=== PATIENT | male | born 1990 ===

== ENCOUNTER 2017-09-13 22:20 | Inpatient (IN) | payer OTHER ==
--- NOTE | 2017-09-13 23:24 | ED PDOC ---
HPI: Chest Pain Time Seen by Provider: 09/13/17 23:03 Chief Complaint (Nursing): Chest Pain Chief Complaint (Provider): Chest pain History Per: Patient History/Exam Limitations: no limitations Onset/Duration Of Symptoms: Days (today) Current Symptoms Are (Timing): Still Present Additional Complaint(s): Pt. with pain to the right side of the chest. Constant. Pain on taking a deep breath. No numbness, tingles, weakness, headaches, dizziness. No dyspnea. No back pain. Has cough. Had flu symptoms that are getting better and is no days 2 of tamiflu. Dx at an urgent care. Past Medical History Reviewed: Nursing Documentation, Vital Signs Vital Signs: Last Vital Signs Temp 102.1 F H 09/13/17 22:57 Pulse 95 H 09/13/17 22:57 Resp 16 09/13/17 22:57 BP 111/73 09/13/17 22:57 Pulse Ox 97 09/13/17 23:28 - Medical History PMH: No Chronic Diseases - Surgical History Surgical History: No Surg Hx - Family History Family History: States: Unknown Family Hx - Living Arrangements Living Arrangements: With Family - Social History Current smoker - smoking cessation education provided: No Alcohol: None Drugs: Denies - Allergies Allergies/Adverse Reactions: Allergies Allergy/AdvReac Type Severity Reaction Status Date / Time No Known Allergies Allergy Verified 09/13/17 23:02 Review of Systems ROS Statement: Except As Marked, All Systems Reviewed And Found Negative Cardiovascular: Positive for: Chest Pain Physical Exam - Reviewed Nursing Documentation Reviewed: Yes Vital Signs Reviewed: Yes - Physical Exam Appears: Positive for: Non-toxic, No Acute Distress Head Exam: Positive for: ATRAUMATIC, NORMAL INSPECTION, NORMOCEPHALIC Skin: Positive for: Normal Color, Warm, DRY Eye Exam: Positive for: EOMI, Normal appearance, PERRL ENT: Positive for: Normal ENT Inspection Neck: Positive for: Normal, Painless ROM Cardiovascular/Chest: Positive for: Regular Rate, Rhythm. Negative for: Chest Non Tender, Edema Respiratory: Positive for: Decreased Breath Sounds (b/l poor effort due to pleuritic pain). Negative for: Wheezing, Respiratory Distress Gastrointestinal/Abdominal: Positive for: Normal Exam, Bowel Sounds, Soft. Negative for: Tenderness Back: Positive for: Normal Inspection. Negative for: L CVA Tenderness, R CVA Tenderness Extremity: Positive for: Normal ROM. Negative for: Tenderness, Pedal Edema Neurologic/Psych: Positive for: Alert, Oriented - ECG ECG: Positive for: Interpreted By Me, Viewed By Me ECG Rhythm: Positive for: Normal QRS, Normal ST Segment, Sinus Rhythm O2 Sat by Pulse Oximetry: 97 Pulse Ox Interpretation: Normal - Progress ED Course And Treament: 1143: Stable. AAOx3. Will get ct. Dr. Fajardo to fu on labs and imaging. Dispo accordingly. Disposition - Clinical Impression Clinical Impression: Pneumonia - Patient ED Disposition Is Patient to be Admitted: Transfer of Care - Disposition Disposition: Transfer of Care Disposition Time: 23:50 Condition: STABLE Patient Signed Over To: Abdelrahman Fajardo
[2017-09-13] MEDS ORDERED: cefTRIAXone (Rocephin) 1 gm Inj IV ONE (23:44)
[2017-09-13] MEDS ORDERED: Azithromycin 500 MG in Sodium Chloride 0.9% 250 ML IVPB STA (23:53)
[2017-09-13 23:54] LABS: BASO % 0.2 % (0.0-2.0); HEMOGLOBIN 14.8 g/dL (12.0-18.0); LYMPH # 0.9 K/uL (1.0-4.3); LYMPH % 5.2 % (20.0-40.0); MEAN CELL VOLUME 92.2 fl (80.0-94.0); MEAN CORPUSCULAR HEMOGLOBIN 31.3 pg (27.0-31.0); MEAN PLATELET VOLUME 8.4 fl (7.2-11.7); MONO # 0.4 K/uL (0.0-0.8); MONO % 2.4 % (0.0-10.0); NEUT # 15.1 K/uL (1.8-7.0); NEUT % 92.2 % (50.0-75.0); NRBC % 0.1 % (0.0-0.0); PLATELET COUNT 261 K/uL (130-400); RBC 4.73 Mil/uL (4.40-5.90); RED CELL DISTRIBUTION WIDTH 12.5 % (11.5-14.5); WHITE BLOOD COUNT 16.4 K/uL (4.8-10.8)
[2017-09-14 00:01] LABS: VENOUS BLOOD GAS BASE EXCESS 3.1 mmol/L (0.0-2.0); VENOUS BLOOD GAS PCO2 51 mmHg (40-60); VENOUS BLOOD GAS PO2 20 mm/Hg (30-55); VENOUS BLOOD PH 7.37 (7.32-7.43)
[2017-09-14] MEDS ORDERED: cefTRIAXone (Rocephin) 1 gm Inj ONE (00:03)
[2017-09-14 00:08] LABS: ALBUMIN 4.2 g/dL (3.5-5.0); ALT/SGPT 31 U/L (21-72); AST/SGOT 32 U/L (17-59); BLOOD UREA NITROGEN 14 mg/dl (9-20); CALCIUM 9.5 mg/dL (8.4-10.2); GFR AFRICAN-AMERICAN > 60; GFR NON-AFRICAN AMERICAN > 60; LIPASE 40 U/L (23-300)
[2017-09-14 00:17] LABS: PROTHROMBIN TIME 12.6 Seconds (9.8-13.1)
[2017-09-14 00:18] LABS: INR 1.1 (0.9-1.2); PARTIAL THROMBOPLASTIN TIME 39.1 Seconds (25.6-37.1)
[2017-09-14] MEDS ORDERED: Iodixanol 320 MG/ML 100 ML BOTTLE IV ONE (00:19)
[2017-09-14] MEDS ORDERED: Sodium Chloride 0.9% 100 ML ONE (00:19)
--- NOTE | 2017-09-14 01:43 | CT ---
EXAM: CT Angiography Chest With Intravenous Contrast EXAM DATE/TIME: 09/13/2017 11:42 PM CLINICAL HISTORY: 26 years old, male; Pain; Chest pain; Additional info: Chest pain r TECHNIQUE: Axial computed tomographic angiography images of the chest with intravenous contrast using pulmonary embolism protocol. All CT scans at this facility use one or more dose reduction techniques, viz.: automated exposure control; ma/kV adjustment per patient size (including targeted exams where dose is matched to indication; i.e. head); or iterative reconstruction technique. MIP reconstructed images were created and reviewed. Coronal and sagittal reformatted images were created and reviewed. CONTRAST: 95 mL of visipaque administered intravenously. COMPARISON: There are no prior studies for comparison. FINDINGS: Artifacts: Motion artifact degrades image quality. Heart, aorta and Pulmonary arteries: Heart size is normal.There is fluid in pericardial recesses.There is no aneurysm or dissection.There are no pulmonary emboli. Lungs and pleural spaces: Trachea and main bronchi are patent. There is partial consolidation of the right middle lobe with air bronchograms. There is partial consolidation of the right lower lobe. There is minimal dependent airspace disease at the left base. There no effusions Mediastinum: The esophagus is unremarkable. There is residual thymic tissue in the anterior mediastinum. There are mildly prominent mediastinal nodes. There is right hilar adenopathy. Thyroid: Thyroid is only partially imaged. Bones/joints: There are old healed right rib fractures. Soft tissues: unremarkable Upper abdomen: There are no acute abnormalities in the visualized portion of the abdomen. IMPRESSION: Right middle and lower lobe pneumonia; no aneurysm, dissection or pulmonary embolus; shotty adenopathy
[2017-09-14] MEDS ORDERED: Morphine 4 MG/ML VIAL IVP PRN (01:49)
[2017-09-14 02:08] LABS: BANDS 4 % (0-2); LYMPHOCYTE 8 % (20-50); MONOCYTE 3 % (0-10); NEUTROPHIL 85 % (42-75); PLATELET ESTIMATE NORMAL (NORMAL); TOTAL CELLS COUNTED 100
[2017-09-14 05:37] LABS: BARBITURATES, UR NEGATIVE (NEGATIVE); BENZODIAZEPINES, UR NEGATIVE (NEGATIVE)
[2017-09-14 05:38] LABS: OPIATES, UR NEGATIVE (NEGATIVE); PHENCYCLIDINE, UR NEGATIVE (NEGATIVE)
[2017-09-14 06:53] LABS: HEMOGLOBIN 12.9 g/dL (12.0-18.0); MEAN CELL VOLUME 92.3 fl (80.0-94.0); MEAN CORPUSCULAR HEMOGLOBIN 31.4 pg (27.0-31.0); MEAN CORPUSCULAR HGB CONC 34.1 g/dL (33.0-37.0); RBC 4.1 Mil/uL (4.40-5.90); RED CELL DISTRIBUTION WIDTH 12.4 % (11.5-14.5)
[2017-09-14 07:24] LABS: ALBUMIN 3.5 g/dL (3.5-5.0); ALT/SGPT 31 U/L (21-72); AST/SGOT 33 U/L (17-59); BLOOD UREA NITROGEN 12 mg/dl (9-20); CALCIUM 8.7 mg/dL (8.4-10.2); GFR AFRICAN-AMERICAN > 60; GFR NON-AFRICAN AMERICAN > 60
--- NOTE | 2017-09-14 09:05 | RAD ---
HISTORY: dyspnea COMPARISON: Subsequent chest CT 09/14/2017. No prior chest imaging available comparison. FINDINGS: LUNGS: History volume is diminished. Right medial basilar opacity suggest infiltrate or atelectasis or clearly defined as pneumonia in separate chest CT 09/14/2017. Please separate report. PLEURA: No significant pleural effusion identified, no pneumothorax apparent. CARDIOVASCULAR: Normal. OSSEOUS STRUCTURES: No significant abnormalities. VISUALIZED UPPER ABDOMEN: Normal. OTHER FINDINGS: None. IMPRESSION: Medial basilar atelectasis or infiltrate right base. Please see separate chest CT result 09/14/2017 suggesting a pneumonia right middle and lower lobes.
[2017-09-14] MEDS: Azithromycin 500 MG in Sodium Chloride 0.9% 250 ML IVPB SCH (09:10)
--- NOTE | 2017-09-14 13:33 | CP.PCM.HP ---
History of Present Illness - History of Present Illness History of Present Illness: 26 year old male with no pmhx who presents to the ED with right sided chest pain when he breathes. The pain is constant, he did not take anything for it, the pain does not radiate. He recently had flu like symptoms, was seen in an urgent care and is now on day 2 of tamiflu. Denies headache, dizziness, sob, nausea, vomiting, fever, chills. Patient was noted to have pneumonia and was admitted to [facility] for further treatment. Present on Admission - Present on Admission Any Indicators Present on Admission: No Review of Systems - Review of Systems All systems: reviewed and no additional remarkable complaints except (as stated) - Constitutional Constitutional: As Per HPI - Cardiovascular Cardiovascular: Chest Pain (right sided with inhalation) - Respiratory Respiratory: As Per HPI - Gastrointestinal Gastrointestinal: As Per HPI Past Patient History - Infectious Disease Hx of Infectious Diseases: None - Past Medical History & Family History Past Medical History?: No Past Family History: Reviewed and not pertinent - Past Social History Smoking Status: Never Smoked - MUSCULOSKELETAL/RHEUMATOLOGICAL Hx Falls: No - PSYCHIATRIC Hx Psychophysiologic Disorder: No Hx Substance Use: No - SURGICAL HISTORY Hx Surgeries: No - ANESTHESIA Hx Anesthesia: No Hx Anesthesia Reactions: No Hx Malignant Hyperthermia: No Has any member of the family had a problem w/ anesthesia?: No Meds Home Medications: Home Medication List Medication Instructions Recorded Confirmed Type Clindamycin [Cleocin] 600 mg IV Q8 #10 vial 09/19/17 Rx Piperacill/Tazo 3.375gm in Dex 3.375 gm IVPB Q8 #10 bag 09/19/17 Rx [Zosyn 3.375 Gm IV] Allergies/Adverse Reactions: Allergies Allergy/AdvReac Type Severity Reaction Status Date / Time No Known Allergies Allergy Verified 09/19/17 20:48 Physical Exam - Constitutional Appears: Non-toxic, No Acute Distress - Head Exam Head Exam: ATRAUMATIC, NORMOCEPHALIC - Eye Exam Eye Exam: EOMI, Normal appearance, PERRL Pupil Exam: NORMAL ACCOMODATION - ENT Exam ENT Exam: Mucous Membranes Moist - Neck Exam Neck exam: Positive for: Full Rom, Normal Inspection - Respiratory Exam Respiratory Exam: Rhonchi (slight mid/lower lobes), NORMAL BREATHING PATTERN - Cardiovascular Exam Cardiovascular Exam: REGULAR RHYTHM, +S1, +S2 - GI/Abdominal Exam GI & Abdominal Exam: Normal Bowel Sounds, Soft - Rectal Exam Rectal Exam: Deferred - Extremities Exam Extremities exam: Positive for: full ROM, pedal pulses present - Back Exam Back exam: NORMAL INSPECTION - Neurological Exam Neurological exam: Alert, Oriented x3 - Psychiatric Exam Psychiatric exam: Normal Affect, Normal Mood - Skin Skin Exam: Normal Color, Warm Results - Vital Signs Recent Vital Signs: Last Vital Signs Temp 102.1 F H 09/14/17 12:00 Pulse 89 09/14/17 12:00 Resp 20 09/14/17 12:00 BP 115/70 09/14/17 12:00 Pulse Ox 94 L 09/14/17 12:00 - Labs Result Diagrams: 09/15/17 07:00 09/17/17 04:25 Labs: Laboratory Results - last 24 hr 09/13/17 09/13/17 09/13/17 23:45 23:45 23:45 WBC 16.4 H RBC 4.73 Hgb 14.8 Hct 43.6 MCV 92.2 MCH 31.3 H MCHC 34.0 RDW 12.5 Plt Count 261 MPV 8.4 Neut % (Auto) 92.2 H Lymph % (Auto) 5.2 L [place] % (Auto) 2.4 Eos % (Auto) 0.0 Baso % (Auto) 0.2 Neut # (Auto) 15.1 H Lymph # (Auto) 0.9 L [place] # (Auto) 0.4 Eos # (Auto) 0.0 Baso # (Auto) 0.0 Neutrophils % (Manual) 85 H Band Neutrophils % 4 H Lymphocytes % (Manual) 8 L Monocytes % (Manual) 3 Platelet Estimate Normal PT 12.6 INR 1.1 APTT 39.1 H pO2 VBG pH VBG pCO2 VBG HCO3 VBG Total CO2 VBG O2 Sat (Calc) VBG Base Excess VBG Potassium Glucose Lactate FiO2 Sodium 140 Potassium 3.6 Chloride 97 L Carbon Dioxide 27 Anion Gap 20 BUN 14 Creatinine 1.0 Est GFR ( Amer) > 60 Est GFR (Non-Af Amer) > 60 Random Glucose 139 H Calcium 9.5 Total Bilirubin 0.9 AST 32 ALT 31 Alkaline Phosphatase 89 Troponin I < 0.0120 Total Protein 8.3 H Albumin 4.2 Globulin 4.1 H Albumin/Globulin Ratio 1.0 Lipase 40 Venous Blood Potassium Urine Opiates Screen Urine Methadone Screen Ur Barbiturates Screen Ur Phencyclidine Scrn Ur Amphetamines Screen U Benzodiazepines Scrn U Oth Cocaine Metabols U Cannabinoids Screen Alcohol, Quantitative < 10 Influenza Typ A,B (EIA) 09/13/17 09/13/17 09/14/17 23:45 23:50 05:05 WBC RBC Hgb Hct MCV MCH MCHC RDW Plt Count MPV Neut % (Auto) Lymph % (Auto) [place] % (Auto) Eos % (Auto) Baso % (Auto) Neut # (Auto) Lymph # (Auto) [place] # (Auto) Eos # (Auto) Baso # (Auto) Neutrophils % (Manual) Band Neutrophils % Lymphocytes % (Manual) Monocytes % (Manual) Platelet Estimate PT INR APTT pO2 20 L VBG pH 7.37 VBG pCO2 51 VBG HCO3 25.5 VBG Total CO2 31.1 H VBG O2 Sat (Calc) 36.3 L VBG Base Excess 3.1 H VBG Potassium 4.1 Glucose 133 H Lactate 2.1 FiO2 21.0 Sodium 133.0 Potassium Chloride 101.0 Carbon Dioxide Anion Gap BUN Creatinine Est GFR ( Amer) Est GFR (Non-Af Amer) Random Glucose Calcium Total Bilirubin AST ALT Alkaline Phosphatase Troponin I Total Protein Albumin Globulin Albumin/Globulin Ratio Lipase Venous Blood Potassium 4.1 Urine Opiates Screen Negative Urine Methadone Screen Negative Ur Barbiturates Screen Negative Ur Phencyclidine Scrn Negative Ur Amphetamines Screen Negative U Benzodiazepines Scrn Negative U Oth Cocaine Metabols Negative U Cannabinoids Screen Negative Alcohol, Quantitative Influenza Typ A,B (EIA) Negative for flu a/b 09/14/17 09/14/17 06:00 06:00 WBC 14.0 H RBC 4.10 L Hgb 12.9 Hct 37.8 MCV 92.3 MCH 31.4 H MCHC 34.1 RDW 12.4 Plt Count 203 MPV Neut % (Auto) Lymph % (Auto) [place] % (Auto) Eos % (Auto) Baso % (Auto) Neut # (Auto) Lymph # (Auto) [place] # (Auto) Eos # (Auto) Baso # (Auto) Neutrophils % (Manual) Band Neutrophils % Lymphocytes % (Manual) Monocytes % (Manual) Platelet Estimate PT INR APTT pO2 VBG pH VBG pCO2 VBG HCO3 VBG Total CO2 VBG O2 Sat (Calc) VBG Base Excess VBG Potassium Glucose Lactate FiO2 Sodium 140 Potassium 3.7 Chloride 101 Carbon Dioxide 27 Anion Gap 16 BUN 12 Creatinine 1.1 Est GFR ( Amer) > 60 Est GFR (Non-Af Amer) > 60 Random Glucose 121 H Calcium 8.7 Total Bilirubin 0.6 AST 33 ALT 31 Alkaline Phosphatase 81 Troponin I Total Protein 7.0 Albumin 3.5 Globulin 3.5 Albumin/Globulin Ratio 1.0 Lipase Venous Blood Potassium Urine Opiates Screen Urine Methadone Screen Ur Barbiturates Screen Ur Phencyclidine Scrn Ur Amphetamines Screen U Benzodiazepines Scrn U Oth Cocaine Metabols U Cannabinoids Screen Alcohol, Quantitative Influenza Typ A,B (EIA) - EKG Data EKG comments: Normal sinus rhythm - Imaging and Cardiology Chest x-ray Additional comment: HISTORY: dyspnea COMPARISON: Subsequent chest CT 09/14/2017. No prior chest imaging available comparison. FINDINGS: LUNGS: History volume is diminished. Right medial basilar opacity suggest infiltrate or atelectasis or clearly defined as pneumonia in separate chest CT 09/14/2017. Please separate report. PLEURA: No significant pleural effusion identified, no pneumothorax apparent. CARDIOVASCULAR: Normal. OSSEOUS STRUCTURES: No significant abnormalities. VISUALIZED UPPER ABDOMEN: Normal. OTHER FINDINGS: None. IMPRESSION: Medial basilar atelectasis or infiltrate right base. Please see separate chest CT result 09/14/2017 suggesting a pneumonia right middle and lower lobes. CT scan - chest Additional comment: CT Scan ANGIO CHEST PE PROTOCOL Exam Date: 09/13/17 This imaging exam was performed at [facility] EXAM: CT Angiography Chest With Intravenous Contrast EXAM DATE/TIME: 09/13/2017 11:42 PM CLINICAL HISTORY: 26 years old, male; Pain; Chest pain; Additional info: Chest pain r TECHNIQUE: Axial computed tomographic angiography images of the chest with intravenous contrast using pulmonary embolism protocol. All CT scans at this facility use one or more dose reduction techniques, viz.: automated exposure control; ma/kV adjustment per patient size (including targeted exams where dose is matched to indication; i.e. head); or iterative reconstruction technique. MIP reconstructed images were created and reviewed. Coronal and sagittal reformatted images were created and reviewed. CONTRAST: 95 mL of visipaque administered intravenously. COMPARISON: There are no prior studies for comparison. FINDINGS: Artifacts: Motion artifact degrades image quality. Heart, aorta and Pulmonary arteries: Heart size is normal.There is fluid in pericardial recesses.There is no aneurysm or dissection.There are no pulmonary emboli. Lungs and pleural spaces: Trachea and main bronchi are patent. There is partial consolidation of the right middle lobe with air bronchograms. There is partial consolidation of the right lower lobe. There is minimal dependent airspace disease at the left base. There no effusions Mediastinum: The esophagus is unremarkable. There is residual thymic tissue in the anterior mediastinum. There are mildly prominent mediastinal nodes. There is right hilar adenopathy. Thyroid: Thyroid is only partially imaged. Bones/joints: There are old healed right rib fractures. Soft tissues: unremarkable Upper abdomen: There are no acute abnormalities in the visualized portion of the abdomen. IMPRESSION: Right middle and lower lobe pneumonia; no aneurysm, dissection or pulmonary embolus; shotty adenopathy Dictated By: Dulce Gannon MD, MD Dictated Date/Time: 09/14/17141 Signed By: Dulce Gannon MD Date Signed: 141 Transcribed By: JOHNATHAN Transcribe Date/Time : 09/14/17141 AMBROCIO/NAEEM [ Reading ] [ Conclusion ] Assessment & Plan (1) Pneumonia Assessment and Plan: Has fever and leukocytosis Right middle and lower lobe pneumonia on cxr and CTmonitor scan Antibiotics - Ceftriaxone, Zithromax IVF ID consult blood cultures monitor labs Status: Acute Priority: High
--- NOTE | 2017-09-14 14:48 | CARD ---
APPROVED REPORT EKG Measurement Heart [id number] <Conclusion> Normal sinus rhythm Nonspecific T wave abnormality Abnormal ECG
[2017-09-14] MEDS ORDERED: Piperacillin/Tazobact 3.375 GM in Sodium Chloride 0.9% 100 ML IVPB SCH (18:45)
--- NOTE | 2017-09-14 18:51 | CP.PCM.PN ---
Subjective - Date & Time of Evaluation Date of Evaluation: 09/14/17 Time of Evaluation: 18:41 - Subjective Subjective: I D NOTE PATIENT EXAMINED ,CHART REVIEWED CT NOTED PATIENT IS QUITE SOB s O2 BLOOD CULTURE (INITIALLY POSITIVE FOR GRAM POSITIVE COCCI IN CHAINS RESTART OXYGEN, HAVE DISCONTINUED CEFTRIAXONE START CLINDAMYCIN/ZOSYN FULL CONSULT DICTATED Objective - Vital Signs/Intake and Output Vital Signs (last 24 hours): Temp Pulse Resp BP Pulse Ox 98.4 F 74 16 110/71 98 09/14/17 17:01 09/14/17 17:01 09/14/17 17:01 09/14/17 17:01 09/14/17 17:01 Intake and Output: 09/14/17 09/14/17 06:59 18:59 Intake Total 1750 Balance 1750 - Medications Medications: Current Medications Acetaminophen (Tylenol 325mg Tab) 650 mg PO Q4 PRN PRN Reason: Fever >100.4 F Last Admin: 09/14/17 11:54 Dose: 650 mg Acetaminophen (Tylenol 325mg Tab) 325 mg PO Q4 PRN PRN Reason: Pain, Mild (1-3) Last Admin: 09/14/17 04:37 Dose: 325 mg Azithromycin 500 mg/ Sodium (Chloride) 250 mls @ 250 mls/hr IVPB DAILY NICHOLAS PRN Reason: Protocol Last Admin: 09/14/17 09:10 Dose: 250 mls/hr Clindamycin Phosphate 600 mg/ (Sodium Chloride) 54 mls @ 54 mls/hr IVPB Q8 NICHOLAS PRN Reason: Protocol Piperacillin Sod/Tazobactam (Sod 3.375 gm/ Sodium Chloride) 100 mls @ 100 mls/ hr IVPB Q8H NICHOLAS PRN Reason: Protocol Morphine Sulfate (Morphine) 2 mg IVP Q6 PRN PRN Reason: Pain, severe (8-10) - Labs Labs: 09/14/17 06:00 09/14/17 06:00 PT 12.6 Seconds (9.8-13.1) 09/13/17 23:45 INR 1.1 (0.9-1.2) 09/13/17 23:45 APTT 39.1 Seconds (25.6-37.1) H 09/13/17 23:45
[2017-09-14 20:02] LABS: ABG ALLEN TEST YES; ARTERIAL BLOOD GAS HCO3 27.2 mmol/L (21-28); ARTERIAL BLOOD GAS HEMOGLOBIN 14.1 g/dL (11.7-17.4); ARTERIAL BLOOD GAS O2 CONTENT 18.6 ML/dL (15-23); ARTERIAL BLOOD GAS O2 SAT 97.7 % (95-98); ARTERIAL BLOOD GAS PCO2 33 mm/Hg (35-45); ARTERIAL BLOOD GAS PO2 72 mm/Hg (80-100); ARTERIAL BLOOD GAS TCO2 26.7 mmol/L (22-28)
[2017-09-15] MEDS: Clindamycin 600mg/50ml NS 600 MG/50 ML BAG IVPB SCH ×3 (00:46→16:47)
[2017-09-15] MEDS: Piperacillin/Tazobact 3.375 GM in Sodium Chloride 0.9% 100 ML IVPB SCH ×3 (04:44→21:27)
[2017-09-15 08:01] LABS: HEMOGLOBIN 12.3 g/dL (12.0-18.0); MEAN CELL VOLUME 92.2 fl (80.0-94.0); MEAN CORPUSCULAR HEMOGLOBIN 31.3 pg (27.0-31.0); RBC 3.94 Mil/uL (4.40-5.90); RED CELL DISTRIBUTION WIDTH 12.6 % (11.5-14.5); WHITE BLOOD COUNT 8.3 K/uL (4.8-10.8)
[2017-09-15 08:04] LABS: ALBUMIN 3.4 g/dL (3.5-5.0); ALT/SGPT 33 U/L (21-72); AST/SGOT 21 U/L (17-59); BLOOD UREA NITROGEN 9 mg/dl (9-20); CALCIUM 9.1 mg/dL (8.4-10.2); GFR AFRICAN-AMERICAN > 60; GFR NON-AFRICAN AMERICAN > 60
[2017-09-15] MEDS: Azithromycin 500 MG in Sodium Chloride 0.9% 250 ML IVPB SCH (08:43)
[2017-09-15] MEDS ORDERED: Promethazine 12.5 mg/10 ml Syrup PO PRN (08:46)
--- NOTE | 2017-09-15 19:01 | CP.PCM.PN ---
Subjective - Date & Time of Evaluation Date of Evaluation: 09/15/17 Time of Evaluation: 19:00 - Subjective Subjective: Feels slight MARCELO, using O2 via NC. Denies headache, dizziness, CP. Had fever yesterday, none today Objective - Vital Signs/Intake and Output Vital Signs (last 24 hours): Temp Pulse Resp BP Pulse Ox 98.3 F 59 L 20 115/75 96 09/15/17 16:03 09/15/17 16:03 09/15/17 16:03 09/15/17 16:03 09/15/17 16:03 - Medications Medications: Current Medications Acetaminophen (Tylenol 325mg Tab) 650 mg PO Q4 PRN PRN Reason: Fever >100.4 F Last Admin: 09/14/17 11:54 Dose: 650 mg Acetaminophen (Tylenol 325mg Tab) 325 mg PO Q4 PRN PRN Reason: Pain, Mild (1-3) Last Admin: 09/15/17 08:47 Dose: 325 mg Azithromycin 500 mg/ Sodium (Chloride) 250 mls @ 250 mls/hr IVPB DAILY NICHOLAS PRN Reason: Protocol Last Admin: 09/15/17 08:43 Dose: 250 mls/hr Clindamycin Phosphate (Cleocin In Normal Saline) 600 mg in 50 mls @ 50 mls/hr IVPB Q8 NICHOLAS PRN Reason: Protocol Last Admin: 09/15/17 16:47 Dose: 50 mls/hr Piperacillin Sod/Tazobactam (Sod 3.375 gm/ Sodium Chloride) 100 mls @ 100 mls/ hr IVPB Q8@0500,1300,2100 NICHOLAS PRN Reason: Protocol Last Admin: 09/15/17 16:02 Dose: 100 mls/hr Morphine Sulfate (Morphine) 2 mg IVP Q6 PRN PRN Reason: Pain, severe (8-10) Promethazine HCl (Phenergan Syrup) 12.5 mg PO Q6 PRN PRN Reason: Cough - Labs Labs: 09/15/17 07:00 09/15/17 07:00 PT 12.6 Seconds (9.8-13.1) 09/13/17 23:45 INR 1.1 (0.9-1.2) 09/13/17 23:45 APTT 39.1 Seconds (25.6-37.1) H 09/13/17 23:45 - Constitutional Appears: Well, No Acute Distress - Head Exam Head Exam: ATRAUMATIC - Respiratory Exam Respiratory Exam: Rhonchi (slight right mid/lower lobes), NORMAL BREATHING PATTERN - Cardiovascular Exam Cardiovascular Exam: REGULAR RHYTHM, +S1, +S2 - GI/Abdominal Exam GI & Abdominal Exam: Soft, Normal Bowel Sounds - Neurological Exam Neurological Exam: Alert, Oriented x3 - Psychiatric Exam Psychiatric exam: Normal Affect, Normal Mood - Skin Skin Exam: Normal Color, Warm Assessment and Plan (1) Pneumonia Status: Acute - Assessment and Plan (Free Text) Assessment: Preliminary result blood cx - gram positive cocci in chains continue antibiotics O2 as needed ID consult work up for atypical pneumonia Hydrate monitor labs
[2017-09-16] MEDS: Clindamycin 600mg/50ml NS 600 MG/50 ML BAG IVPB SCH ×3 (01:11→17:14)
[2017-09-16] MEDS: Piperacillin/Tazobact 3.375 GM in Sodium Chloride 0.9% 100 ML IVPB SCH ×3 (04:34→22:38)
[2017-09-16] MEDS: Azithromycin 500 MG in Sodium Chloride 0.9% 250 ML IVPB SCH (09:26)
--- NOTE | 2017-09-16 18:06 | CP.PCM.PN ---
Subjective - Date & Time of Evaluation Date of Evaluation: 09/16/17 Time of Evaluation: 16:25 - Subjective Subjective: Feels better, less MARCELO. Denies cp, dizziness, fever or chills Objective - Vital Signs/Intake and Output Vital Signs (last 24 hours): Temp Pulse Resp BP Pulse Ox 98.5 F 56 L 20 106/70 96 09/16/17 15:45 09/16/17 15:45 09/16/17 15:45 09/16/17 15:45 09/16/17 15:45 - Medications Medications: Current Medications Acetaminophen (Tylenol 325mg Tab) 650 mg PO Q4 PRN PRN Reason: Fever >100.4 F Last Admin: 09/14/17 11:54 Dose: 650 mg Acetaminophen (Tylenol 325mg Tab) 325 mg PO Q4 PRN PRN Reason: Pain, Mild (1-3) Last Admin: 09/15/17 08:47 Dose: 325 mg Azithromycin 500 mg/ Sodium (Chloride) 250 mls @ 250 mls/hr IVPB DAILY NICHOLAS PRN Reason: Protocol Last Admin: 09/16/17 09:26 Dose: 250 mls/hr Clindamycin Phosphate (Cleocin In Normal Saline) 600 mg in 50 mls @ 50 mls/hr IVPB Q8 NICHOLAS PRN Reason: Protocol Last Admin: 09/16/17 17:14 Dose: 50 mls/hr Piperacillin Sod/Tazobactam (Sod 3.375 gm/ Sodium Chloride) 100 mls @ 100 mls/ hr IVPB Q8@0500,1300,2100 NICHOLAS PRN Reason: Protocol Last Admin: 09/16/17 11:59 Dose: 100 mls/hr Morphine Sulfate (Morphine) 2 mg IVP Q6 PRN PRN Reason: Pain, severe (8-10) Promethazine HCl (Phenergan Syrup) 12.5 mg PO Q6 PRN PRN Reason: Cough - Labs Labs: 09/15/17 07:00 09/15/17 07:00 PT 12.6 Seconds (9.8-13.1) 09/13/17 23:45 INR 1.1 (0.9-1.2) 09/13/17 23:45 APTT 39.1 Seconds (25.6-37.1) H 09/13/17 23:45 - Constitutional Appears: Well, No Acute Distress - Head Exam Head Exam: ATRAUMATIC, NORMOCEPHALIC - Respiratory Exam Respiratory Exam: Rhonchi (slight right mid/lower lobes), NORMAL BREATHING PATTERN - Cardiovascular Exam Cardiovascular Exam: REGULAR RHYTHM, +S1, +S2 - GI/Abdominal Exam GI & Abdominal Exam: Soft, Normal Bowel Sounds - Neurological Exam Neurological Exam: Alert, Oriented x3 - Psychiatric Exam Psychiatric exam: Normal Affect, Normal Mood - Skin Skin Exam: Normal Color, Warm Assessment and Plan (1) Pneumonia Status: Acute - Assessment and Plan (Free Text) Assessment: Positive bld cultures - strep. pneumoniae antibiotics adjusted by ID F/u echo hydrate oob to ambulate
--- NOTE | 2017-09-16 19:06 | CP.PCM.PN ---
Subjective - Date & Time of Evaluation Date of Evaluation: 09/16/17 Time of Evaluation: 18:50 - Subjective Subjective: I D NOTE PATIENT STATES THAT HE IS LESS SOB AND IS FEELIMG BETTER BLOOD CULTURES HAVE GROWN STREP PNEUMONIA X 2 HAVE ORDERED ECHOCARDIOGRAM COLD AGGLUTININS/LEGONELLA TITERS ARE NEGATIVE HAVE DISCONTINUED ZITHROMAX CONTINUE CLINDAMYCIN/ZOSYN LUNGS:CONTINUES TO HAVE DECREASED BS ON RIGHT C RHONCHI MID TO LOWER LUNG MALLORY Objective - Vital Signs/Intake and Output Vital Signs (last 24 hours): Temp Pulse Resp BP Pulse Ox 98.5 F 56 L 20 106/70 96 09/16/17 15:45 09/16/17 15:45 09/16/17 15:45 09/16/17 15:45 09/16/17 15:45 - Medications Medications: Current Medications Acetaminophen (Tylenol 325mg Tab) 650 mg PO Q4 PRN PRN Reason: Fever >100.4 F Last Admin: 09/14/17 11:54 Dose: 650 mg Acetaminophen (Tylenol 325mg Tab) 325 mg PO Q4 PRN PRN Reason: Pain, Mild (1-3) Last Admin: 09/15/17 08:47 Dose: 325 mg Clindamycin Phosphate (Cleocin In Normal Saline) 600 mg in 50 mls @ 50 mls/hr IVPB Q8 NICHOLAS PRN Reason: Protocol Last Admin: 09/16/17 17:14 Dose: 50 mls/hr Piperacillin Sod/Tazobactam (Sod 3.375 gm/ Sodium Chloride) 100 mls @ 100 mls/ hr IVPB Q8@0500,1300,2100 NICHOLAS PRN Reason: Protocol Last Admin: 09/16/17 11:59 Dose: 100 mls/hr Morphine Sulfate (Morphine) 2 mg IVP Q6 PRN PRN Reason: Pain, severe (8-10) Promethazine HCl (Phenergan Syrup) 12.5 mg PO Q6 PRN PRN Reason: Cough - Labs Labs: 09/15/17 07:00 09/15/17 07:00 PT 12.6 Seconds (9.8-13.1) 09/13/17 23:45 INR 1.1 (0.9-1.2) 09/13/17 23:45 APTT 39.1 Seconds (25.6-37.1) H 09/13/17 23:45
[2017-09-17] MEDS: Clindamycin 600mg/50ml NS 600 MG/50 ML BAG IVPB SCH ×3 (00:21→16:46)
[2017-09-17] MEDS: Piperacillin/Tazobact 3.375 GM in Sodium Chloride 0.9% 100 ML IVPB SCH ×3 (05:28→21:07)
[2017-09-17 06:16] LABS: ALBUMIN 3.3 g/dL (3.5-5.0); ALT/SGPT 23 U/L (21-72); AST/SGOT 18 U/L (17-59); BLOOD UREA NITROGEN 15 mg/dl (9-20); CALCIUM 9.3 mg/dL (8.4-10.2); GFR AFRICAN-AMERICAN > 60; GFR NON-AFRICAN AMERICAN > 60
--- NOTE | 2017-09-17 10:46 | RAD ---
HISTORY: f/u pna COMPARISON: 09/13/2017 TECHNIQUE: Chest PA and lateral FINDINGS: LUNGS: No definite consolidation though consolidation at the right lung base may be obscured by a the small pleural effusion on current examination. PLEURA: Small right pleural effusion, new since prior examination. CARDIOVASCULAR: Normal. OSSEOUS STRUCTURES: No significant abnormalities. VISUALIZED UPPER ABDOMEN: Normal. OTHER FINDINGS: None. IMPRESSION: New small right pleural effusion
--- NOTE | 2017-09-17 23:48 | CP.PCM.PN ---
Subjective - Date & Time of Evaluation Date of Evaluation: 09/17/17 Time of Evaluation: 19:00 - Subjective Subjective: Feels better, less MARCELO. Denies fever or chills. no chest pain Objective - Vital Signs/Intake and Output Vital Signs (last 24 hours): Temp Pulse Resp BP Pulse Ox 97.8 F 57 L 20 107/67 95 09/17/17 19:31 09/17/17 19:31 09/17/17 19:31 09/17/17 19:31 09/17/17 19:31 Intake and Output: 09/17/17 09/18/17 18:59 06:59 Intake Total 1400 Balance 1400 - Medications Medications: Current Medications Acetaminophen (Tylenol 325mg Tab) 650 mg PO Q4 PRN PRN Reason: Fever >100.4 F Last Admin: 09/14/17 11:54 Dose: 650 mg Acetaminophen (Tylenol 325mg Tab) 325 mg PO Q4 PRN PRN Reason: Pain, Mild (1-3) Last Admin: 09/15/17 08:47 Dose: 325 mg Clindamycin Phosphate (Cleocin In Normal Saline) 600 mg in 50 mls @ 50 mls/hr IVPB Q8 NICHOLAS PRN Reason: Protocol Last Admin: 09/17/17 16:46 Dose: 50 mls/hr Piperacillin Sod/Tazobactam (Sod 3.375 gm/ Sodium Chloride) 100 mls @ 100 mls/ hr IVPB Q8@0500,1300,2100 NICHOLAS PRN Reason: Protocol Last Admin: 09/17/17 21:07 Dose: 100 mls/hr Morphine Sulfate (Morphine) 2 mg IVP Q6 PRN PRN Reason: Pain, severe (8-10) Promethazine HCl (Phenergan Syrup) 12.5 mg PO Q6 PRN PRN Reason: Cough Last Admin: 09/17/17 11:50 Dose: 12.5 mg - Labs Labs: 09/15/17 07:00 09/17/17 04:25 PT 12.6 Seconds (9.8-13.1) 09/13/17 23:45 INR 1.1 (0.9-1.2) 09/13/17 23:45 APTT 39.1 Seconds (25.6-37.1) H 09/13/17 23:45 - Constitutional Appears: Well, No Acute Distress - Head Exam Head Exam: ATRAUMATIC, NORMOCEPHALIC - Respiratory Exam Respiratory Exam: Rhonchi (slight, RLL), NORMAL BREATHING PATTERN - Cardiovascular Exam Cardiovascular Exam: REGULAR RHYTHM, +S1, +S2 - GI/Abdominal Exam GI & Abdominal Exam: Soft, Normal Bowel Sounds - Neurological Exam Neurological Exam: Alert, Oriented x3 - Psychiatric Exam Psychiatric exam: Normal Affect, Normal Mood - Skin Skin Exam: Normal Color, Warm Assessment and Plan (1) Pneumonia Assessment & Plan: Continue same antibiotics Repeat bld cx negative thus far Normal echo ID consult appreciated monitor labs Status: Acute
[2017-09-18] MEDS: Clindamycin 600mg/50ml NS 600 MG/50 ML BAG IVPB SCH ×3 (00:29→16:15)
[2017-09-18] MEDS: Piperacillin/Tazobact 3.375 GM in Sodium Chloride 0.9% 100 ML IVPB SCH ×3 (05:11→20:24)
--- NOTE | 2017-09-18 09:47 | CARD ---
APPROVED REPORT EXAM: Two-dimensional and M-mode echocardiogram with Doppler and color Doppler. Other Information Quality : GoodRhythm : NSR INDICATION Infection:Subacute bacterial endocarditis +Blood Cultures 2D DIMENSIONS IVSd1.02 (0.7-1.1cm)LVDd5.27 (3.9-5.9cm) LVOT Diameter2.02 (1.8-2.4cm)PWd1.03 (0.7-1.1cm) IVSs1.28 (0.8-1.2cm)LVDs3.99 (2.5-4.0cm) FS (%) 24.2 %PWs1.28 (0.8-1.2cm) M-Mode DIMENSIONS Left Atrium (MM)4.26 (2.5-4.0cm)IVSd1.00 (0.7-1.1cm) Aortic Root3.00 (2.2-3.7cm)LVDd5.91 (4.0-5.6cm) Aortic Cusp Exc.2.24 (1.5-2.0cm)PWd0.76 (0.7-1.1cm) IVSs1.32 cmFS (%) 32 % LVDs4.00 (2.0-3.8cm)PWs1.59 cm Mitral Valve MV E Ygmtzvki82.4cm/sMV DECEL [id number] A Vpplfrzm99.6cm/s MV UXN95tsH/A ratio2.0MVA (PHT)4.07cm2 TDI Lateral E' Peak V19.31cm/sMedial E' Peak V11.33cm/sE/Lateral E'4.2 E/Medial E'7.2 Pulmonary Valve PV Peak Cmqjqxsd11.8cm/s LEFT VENTRICLE The left ventricle is normal size. There is normal left ventricular wall thickness. The left ventricular function is normal. The left ventricular ejection fraction is 60% There is normal LV segmental wall motion. The left ventricular diastolic function is normal. No left ventricle thrombus noted on this study. There is no ventricular septal defect visualized. There is no left ventricular aneurysm. There is no mass noted in the left ventricle. RIGHT VENTRICLE The right ventricle is normal size. There is normal right ventricular wall thickness. The right ventricular systolic function is normal. ATRIA The left atrium size is normal. The right atrium size is normal. The interatrial septum is intact with no evidence for an atrial septal defect. AORTIC VALVE The aortic valve is normal in structure. No aortic regurgitation is present. There is no aortic valvular stenosis. There is no aortic valvular vegetation. MITRAL VALVE The mitral valve is normal in structure. There is no evidence of mitral valve prolapse. There is no mitral valve stenosis. There is no mitral valve regurgitation noted. TRICUSPID VALVE The tricuspid valve is normal in structure. There is no tricuspid valve regurgitation noted. There is no tricuspid valve prolapse or vegetation. There is no tricuspid valve stenosis. PULMONIC VALVE The pulmonary valve is normal in structure. There is no pulmonic valvular regurgitation. There is no pulmonic valvular stenosis. GREAT VESSELS The aortic root is normal in size. The ascending aorta is normal in size. The IVC is normal in size and collapses >50% with inspiration. PERICARDIAL EFFUSION The pericardium appears normal. There is no pleural effusion. <Conclusion> Normal Echocardiogram
[2017-09-18 11:45] LABS: % CD4 (T HELPER CELL) 63 Percent (30-61); % CD8 (SUPPRESSOR T CELL) 26 Percent (12-42); ABSOLUTE CD4 CELLS 1699 Cells/mcL (490-1740); ABSOLUTE CD8 CELLS 694 Cells/mcL (180-1170); ABSOLUTE LYMPHOCYTES 2685 Cells/mcL (850-3900); HELPER/SUPPRESSOR RATIO 2.45 Ratio (0.86-5.00)
--- NOTE | 2017-09-18 14:41 | CT ---
PROCEDURE: CT Chest without contrast HISTORY: f/u pna COMPARISON: 09/14/2017 TECHNIQUE: Contiguous axial images were obtained through the chest without intravenous contrast enhancement. Sagittal and coronal reconstructions were performed. Radiation dose (DLP): 490.03 mGy-cm. This CT exam was performed using one or more of the following dose reduction techniques: Automated exposure control, adjustment of the mA and/or kV according to patient size, and/or use of iterative reconstruction technique. FINDINGS: LUNGS: There has been slight improvement in the extent of consolidation in the right middle lobe and right lower lobe. There is minimal subsegmental atelectasis noted in the posterior left lower lobe, likely secondary to a very small left pleural effusion. MEDIASTINUM: Unremarkable thoracic aorta. No aneurysm. Normal sized heart. Main pulmonary artery unremarkable. No vascular congestion. No lymphadenopathy. Residual thymic tissue seen in the anterior mediastinum. PLEURA: Small right and trace left pleural effusion. Pleural fluid seen in right major fissure. BONES: No fracture. No destructive lesion. UPPER ABDOMEN: 2.0 cm right upper pole renal cortical cyst. OTHER FINDINGS: None. IMPRESSION: Slight improvement in the extent of right middle lobe and right lower lobe consolidation compared to examination of 09/14/2017. Small right and trace left pleural effusion.
--- NOTE | 2017-09-18 22:10 | CP.PCM.PN ---
Subjective - Date & Time of Evaluation Date of Evaluation: 09/18/17 Time of Evaluation: 18:10 - Subjective Subjective: Feels better, no MARCELO today. Denies fever or chills. No cp, n/v Objective - Vital Signs/Intake and Output Vital Signs (last 24 hours): Temp Pulse Resp BP Pulse Ox 98.1 F 55 L 20 109/57 L 97 09/18/17 20:11 09/18/17 20:11 09/18/17 20:11 09/18/17 20:11 09/18/17 20:11 Intake and Output: 09/18/17 09/19/17 18:59 06:59 Intake Total 700 Balance 700 - Medications Medications: Current Medications Acetaminophen (Tylenol 325mg Tab) 650 mg PO Q4 PRN PRN Reason: Fever >100.4 F Last Admin: 09/14/17 11:54 Dose: 650 mg Acetaminophen (Tylenol 325mg Tab) 325 mg PO Q4 PRN PRN Reason: Pain, Mild (1-3) Last Admin: 09/15/17 08:47 Dose: 325 mg Clindamycin Phosphate (Cleocin In Normal Saline) 600 mg in 50 mls @ 50 mls/hr IVPB Q8 NICHOLAS PRN Reason: Protocol Last Admin: 09/18/17 16:15 Dose: 50 mls/hr Piperacillin Sod/Tazobactam (Sod 3.375 gm/ Sodium Chloride) 100 mls @ 100 mls/ hr IVPB Q8@0500,1300,2100 NICHOLAS PRN Reason: Protocol Last Admin: 09/18/17 20:24 Dose: 100 mls/hr Morphine Sulfate (Morphine) 2 mg IVP Q6 PRN PRN Reason: Pain, severe (8-10) Promethazine HCl (Phenergan Syrup) 12.5 mg PO Q6 PRN PRN Reason: Cough Last Admin: 09/17/17 11:50 Dose: 12.5 mg - Labs Labs: 09/15/17 07:00 09/17/17 04:25 PT 12.6 Seconds (9.8-13.1) 09/13/17 23:45 INR 1.1 (0.9-1.2) 09/13/17 23:45 APTT 39.1 Seconds (25.6-37.1) H 09/13/17 23:45 - Constitutional Appears: Well, No Acute Distress - Respiratory Exam Respiratory Exam: Decreased Breath Sounds (RLL), NORMAL BREATHING PATTERN - Cardiovascular Exam Cardiovascular Exam: REGULAR RHYTHM, +S1, +S2 - GI/Abdominal Exam GI & Abdominal Exam: Soft, Normal Bowel Sounds - Neurological Exam Neurological Exam: Alert, Oriented x3 - Psychiatric Exam Psychiatric exam: Normal Affect, Normal Mood - Skin Skin Exam: Normal Color, Warm Assessment and Plan (1) Pneumonia Assessment & Plan: continue same management repeat bld cx negative Chest CT shows improvement in right mid/lower lobe pna legionella, mycoplasma IgM negative abx recommendation per ID Status: Acute
[2017-09-19] MEDS: Clindamycin 600mg/50ml NS 600 MG/50 ML BAG IVPB SCH ×3 (00:33→16:33)
[2017-09-19] MEDS: Piperacillin/Tazobact 3.375 GM in Sodium Chloride 0.9% 100 ML IVPB SCH ×2 (05:03→12:38)
--- NOTE | 2017-09-19 14:42 | CP.PCM.PN ---
Subjective - Date & Time of Evaluation Date of Evaluation: 09/19/17 Time of Evaluation: 14:44 - Subjective Subjective: ID NOTE DOING WELL CT SCAN SHOWS SOME IMPROVEMENT SED RATE IS 96(HAVE REPEATED) IMMUNE SYSTEM IS FINE CD4 IS 2685(% is 63%),HIV(RAPID) IS NEGATIVE MYCOPLASMA IgM IS NEGATIVE LEGONELLA IS NEGATIVE WELL COLD AGGLUTININS ECHOCARDIOGRAM IS NORMAL ALL THINGS COSIDERED IT IS SURPRISNG THAT HE HAS SUCH A SIGNIFICANT PNEUMOCOCCAL PNEUMONIA/SEPSIS WILL NEED TOTAL OF AT LEAST 10 DAYS OF IV ANTIBIOTICS c 1 WEEK PO ANTIBIOTICS Objective - Vital Signs/Intake and Output Vital Signs (last 24 hours): Temp Pulse Resp BP Pulse Ox 98.2 F 59 L 20 92/56 L 95 09/19/17 13:00 09/19/17 13:00 09/19/17 13:00 09/19/17 13:00 09/19/17 13:00 - Medications Medications: Current Medications Acetaminophen (Tylenol 325mg Tab) 650 mg PO Q4 PRN PRN Reason: Fever >100.4 F Last Admin: 09/14/17 11:54 Dose: 650 mg Acetaminophen (Tylenol 325mg Tab) 325 mg PO Q4 PRN PRN Reason: Pain, Mild (1-3) Last Admin: 09/15/17 08:47 Dose: 325 mg Clindamycin Phosphate (Cleocin In Normal Saline) 600 mg in 50 mls @ 50 mls/hr IVPB Q8 NICHOLAS PRN Reason: Protocol Last Admin: 09/19/17 09:14 Dose: 50 mls/hr Piperacillin Sod/Tazobactam (Sod 3.375 gm/ Sodium Chloride) 100 mls @ 100 mls/ hr IVPB Q8@0500,1300,2100 NICHOLAS PRN Reason: Protocol Last Admin: 09/19/17 12:38 Dose: 100 mls/hr Morphine Sulfate (Morphine) 2 mg IVP Q6 PRN PRN Reason: Pain, severe (8-10) Promethazine HCl (Phenergan Syrup) 12.5 mg PO Q6 PRN PRN Reason: Cough Last Admin: 09/17/17 11:50 Dose: 12.5 mg - Labs Labs: 09/15/17 07:00 09/17/17 04:25 PT 12.6 Seconds (9.8-13.1) 09/13/17 23:45 INR 1.1 (0.9-1.2) 09/13/17 23:45 APTT 39.1 Seconds (25.6-37.1) H 09/13/17 23:45
[2017-09-19 16:52] VITALS: BP 105/66; PULSE 57; RESP 18; TEMP 97.9; O2SAT 97
--- NOTE | 2017-09-19 18:54 | CP.PCM.DIS ---
Provider - Provider Date of Admission: 09/14/17 00:13 Attending physician: Charlette Ying MD Time Spent in preparation of Discharge (in minutes): 30 Diagnosis - Discharge Diagnosis (1) Pneumonia Status: Acute Hospital Course - Lab Results Lab Results: Micro Results 09/15/17 10:05 Blood Blood Culture - Preliminary NO GROWTH AFTER 4 DAYS 09/15/17 09:55 Blood Blood Culture - Preliminary NO GROWTH AFTER 4 DAYS 09/13/17 23:45 Blood-Venous Blood Culture - Final Streptococcus Pneumoniae 09/13/17 23:45 Blood-Venous Gram Stain - Final 09/13/17 23:30 Blood-Venous S.aureus & Coag-Neg Staph PNA FISH - Final 09/13/17 23:30 Blood-Venous Blood Culture - Final Streptococcus Pneumoniae 09/13/17 23:30 Blood-Venous Gram Stain - Final Most Recent Lab Values WBC 8.3 K/uL (4.8-10.8) 09/15/17 07:00 RBC 3.94 Mil/uL (4.40-5.90) L 09/15/17 07:00 Hgb 12.3 g/dL (12.0-18.0) 09/15/17 07:00 Hct 36.3 % (35.0-51.0) 09/15/17 07:00 MCV 92.2 fl (80.0-94.0) 09/15/17 07:00 MCH 31.3 pg (27.0-31.0) H 09/15/17 07:00 MCHC 34.0 g/dL (33.0-37.0) 09/15/17 07:00 RDW 12.6 % (11.5-14.5) 09/15/17 07:00 Plt Count 245 K/uL (130-400) 09/15/17 07:00 MPV 8.4 fl (7.2-11.7) 09/13/17 23:45 Neut % (Auto) 92.2 % (50.0-75.0) H 09/13/17 23:45 Lymph % (Auto) 5.2 % (20.0-40.0) L 09/13/17 23:45 [place] % (Auto) 2.4 % (0.0-10.0) 09/13/17 23:45 Eos % (Auto) 0.0 % (0.0-4.0) 09/13/17 23:45 Baso % (Auto) 0.2 % (0.0-2.0) 09/13/17 23:45 Neut # (Auto) 15.1 K/uL (1.8-7.0) H 09/13/17 23:45 Lymph # (Auto) 0.9 K/uL (1.0-4.3) L 09/13/17 23:45 [place] # (Auto) 0.4 K/uL (0.0-0.8) 09/13/17 23:45 Eos # (Auto) 0.0 K/uL (0.0-0.7) 09/13/17 23:45 Baso # (Auto) 0.0 K/uL (0.0-0.2) 09/13/17 23:45 Neutrophils % (Manual) 85 % (42-75) H 09/13/17 23:45 Band Neutrophils % 4 % (0-2) H 09/13/17 23:45 Lymphocytes % (Manual) 8 % (20-50) L 09/13/17 23:45 Monocytes % (Manual) 3 % (0-10) 09/13/17 23:45 Platelet Estimate Normal (NORMAL) 09/13/17 23:45 ESR 96 mm/hr (0-15) H 09/17/17 04:25 PT 12.6 Seconds (9.8-13.1) 09/13/17 23:45 INR 1.1 (0.9-1.2) 09/13/17 23:45 APTT 39.1 Seconds (25.6-37.1) H 09/13/17 23:45 pCO2 33 mm/Hg (35-45) L 09/14/17 19:42 pO2 72 mm/Hg (80-100) L 09/14/17 19:42 HCO3 27.2 mmol/L (21-28) 09/14/17 19:42 ABG pH 7.50 (7.35-7.45) H 09/14/17 19:42 ABG Total CO2 26.7 mmol/L (22-28) 09/14/17 19:42 ABG O2 Saturation 97.7 % (95-98) 09/14/17 19:42 ABG O2 Content 18.6 ML/dL (15-23) 09/14/17 19:42 ABG Base Excess 3.0 mmol/L (-2.0-3.0) 09/14/17 19: ABG Hemoglobin 14.1 g/dL (11.7-17.4) 09/14/17 19:42 ABG Carboxyhemoglobin 2.1 % (0.5-1.5) H 09/14/17:42 POC ABG HHb (Measured) 2.2 % (0.0-5.0) 09/14/17: ABG Methemoglobin 1.9 % (0.0-3.0) 09/14/17: ABG O2 Capacity 19.0 mL/dL (16-24) 09/14/17: Matthew Test Yes 09/14/17: VBG pH 7.37 (7.32-7.43) 09/13/17 23:50 VBG pCO2 51 mmHg (40-60) 09/13/17 23:50 VBG HCO3 25.5 mmol/L 09/13/17 23:50 VBG Total CO2 31.1 mmol/L (22-28) H 09/13/17 23:50 VBG O2 Sat (Calc) 36.3 % (40-65) L 09/13/17 23:50 VBG Base Excess 3.1 mmol/L (0.0-2.0) H 09/13/17 23:50 VBG Potassium 4.1 mmol/L (3.6-5.2) 09/13/17 23:50 A-a O2 Difference 36.0 mm/Hg 09/14/17 19:42 Hgb O2 Saturation 93.8 % (95.0-98.0) L 09/14/17 19:42 Sodium 133.0 mmol/L (132-148) 09/13/17 23:50 Chloride 101.0 mmol/L (98-107) 09/13/17 23:50 Glucose 133 mg/dL (75-110) H 09/13/17 23:50 Lactate 2.1 mmol/L (0.7-2.1) 09/13/17 23:50 FiO2 21.0 % 09/14/17 19: Sodium 142 mmol/l (132-148) 09/17/17 04:25 Potassium 3.9 MMOL/L (3.6-5.0) 09/17/17 04:25 Chloride 103 mmol/L (98-107) 09/17/17 04:25 Carbon Dioxide 26 mmol/L (22-30) 09/17/17 04:25 Anion Gap 17 (10-20) 09/17/17 04:25 BUN 15 mg/dl (9-20) 09/17/17 04:25 Creatinine 0.8 mg/dl (0.8-1.5) 09/17/17 04:25 Est GFR ( Amer) > 60 09/17/17 04:25 Est GFR (Non-Af Amer) > 60 09/17/17 04:25 Random Glucose 89 mg/dL (75-110) 09/17/17 04:25 Lactic Acid 1.0 MMOL/L (0.7-2.1) 09/16/17 20:30 Calcium 9.3 mg/dL (8.4-10.2) 09/17/17 04:25 Total Bilirubin 0.3 mg/dl (0.2-1.3) 09/17/17 04:25 AST 18 U/L (17-59) 09/17/17 04:25 ALT 23 U/L (21-72) 09/17/17 04:25 Alkaline Phosphatase 57 U/L (38-126) 09/17/17 04:25 Troponin I < 0.0120 ng/mL (0.00-0.120) 09/13/17 23:45 Total Protein 6.7 G/DL (6.3-8.2) 09/17/17 04:25 Albumin 3.3 g/dL (3.5-5.0) L 09/17/17 04:25 Globulin 3.4 gm/dL (2.2-3.9) 09/17/17 04:25 Albumin/Globulin Ratio 1.0 (1.0-2.1) 09/17/17 04:25 Lipase 40 U/L (23-300) 09/13/17 23:45 Procalcitonin 0.42 NG/ML (0.19-0.49) 09/17/17 04:25 Venous Blood Potassium 4.1 mmol/L (3.6-5.2) 09/13/17 23:50 Urine Opiates Screen Negative (NEGATIVE) 09/14/17 05:05 Urine Methadone Screen Negative (NEGATIVE) 09/14/17 05:05 Ur Barbiturates Screen Negative (NEGATIVE) 09/14/17 05:05 Ur Phencyclidine Scrn Negative (NEGATIVE) 09/14/17 05:05 Ur Amphetamines Screen Negative (NEGATIVE) 09/14/17 05:05 U Benzodiazepines Scrn Negative (NEGATIVE) 09/14/17 05:05 U Oth Cocaine Metabols Negative (NEGATIVE) 09/14/17 05:05 U Cannabinoids Screen Negative (NEGATIVE) 09/14/17 05:05 Alcohol, Quantitative < 10 mg/dl (0-10) 09/13/17 23:45 Cold Agglutinins Negative (NEGATIVE) 09/15/17 05:10 Absolute Lymphs (Flow) 2685 Cells/mcL (850-3900) 09/17/17 04:25 % CD4 Cells 63 Percent (30-61) H 09/17/17 04:25 Absolute CD4 Count 1699 Cells/mcL (490-1740) 09/17/17 04:25 T-Help/Suppress Ratio 2.45 Ratio (0.86-5.00) 09/17/17 04:25 % CD8 Cells 26 Percent (12-42) 09/17/17 04:25 Absolute CD8 Count 694 Cells/mcL (180-1170) 09/17/17 04:25 HIV-1 Ab Rapid Screen Non reactive (NON REAC) 09/17/17 18:13 Influenza Typ A,B (EIA) Negative for flu a/b (NEGATIVE) 09/13/17 23:45 Ur L.pneumophila Ag Negative (NEGATIVE) 09/14/17 20:15 Mycoplasma pneumon IgG 2.14 (<=0.90) H 09/15/17 05:10 Mycoplasma pneumon IgM 62 U/mL (<770) 09/15/17 05:10 - Hospital Course Hospital Course: 26 year old male with no pmhx who was admitted for right mid/lower lobe pneumonia. The patient was treated with IV antibiotics. The patient was also noted to have positive blood cultures x 2. Antibiotics were adjusted and the patient responded well. The patient needs to complete 10 days of IV abx per ID recommendation. The patient was discharged to TCU for completion of abx therapy. Discharge Exam - Head Exam Head Exam: ATRAUMATIC, NORMOCEPHALIC - Respiratory Exam Respiratory Exam: Decreased Breath Sounds (RLL) - Cardiovascular Exam Cardiovascular Exam: REGULAR RHYTHM, +S1, +S2 - GI/Abdominal Exam GI & Abdominal Exam: Normal Bowel Sounds, Soft - Neurological Exam Neurological exam: Alert, Oriented x3 - Psychiatric Exam Psychiatric exam: Normal Affect, Normal Mood - Skin Skin Exam: Normal Color, Warm Discharge Plan - Discharge Medications Prescriptions: Clindamycin [Cleocin] 600 mg IV Q8 #10 vial Piperacill/Tazo 3.375gm in Dex [Zosyn 3.375 Gm IV] 3.375 gm IVPB Q8 #10 bag - Follow Up Plan Condition: STABLE Disposition: HOME/ ROUTINE Instructions: Pneumonia, Adult (DC) Referrals: Charlette Ying MD [Staff Provider] -
--- NOTE | 2017-09-22 12:55 | PQF GENQUE ---
Dr. Fields progress note dated 09/[address] Barraza documented "significant pneumococcal pneumonia/sepsis." After study was pt treated for pneumococcal pneumonia? Secondly was pt diagnosed with sepsis? If so was it due to pneumococcus? This form is a permanent part of the medical record Clarification of your documentation is requested to better reflect the severity of illness and intensity of treatment of your patient. Indicators present [] Specify: [] [] Specify: [] [] Specify: [] [] Specify: [] Location in the medical record that reflects the above clinical findings: [] Treatment Provided: [] PHYSICIAN'S RESPONSE Based on your medical judgment of the clinical indicators outlined above please clarify the following: [] Practitioner response [] If unable to determine, please check the box, sign and date. Present On Admission (POA) Indicator: [] Present at the time of admission [] Not present at the time of admission [] Clinically Undetermined In responding to this query, please exercise your independent professional judgment. The fact that a question is asked does not imply that any particular answer is desired or expected. Thank you for your clarification on this documentation. 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
== END 2017-09-19 18:48 | DRG 871 ==
LOC: H.ER 22:20 → H.ERHOLD 09-14 00:13 → H.TEL 09-14 01:28
PROVIDERS: ADMIT Internal Medicine; ATTEND Internal Medicine
DX: A40.3 Sepsis due to Streptococcus pneumoniae (principal); J13 Pneumonia due to Streptococcus pneumoniae

== ENCOUNTER 2017-09-13 22:20 | Emergency (ER) | payer OTHER | END 2017-09-14 01:38 | LOC: H.ER 22:20 | DX: J18.9 Pneumonia, unspecified organism (principal) | CPT/HCPCS: 71045; 71275; 80053; 80320; 82803; 83690; 84484; 85025; 85610; 85730; 87804; 93005; 96365; 96368; 96375; 99285; J0456; J0696; J1885; Q9967 ==

== ENCOUNTER 2017-09-19 18:45 | Inpatient (IN) | payer OTHER ==
[2017-09-19 21:01] VITALS: BMI 24.7
[2017-09-19] MEDS ORDERED: Promethazine 12.5 mg/10 ml Syrup PO PRN (23:53)
[2017-09-20 00:31] VITALS: RESP 20
[2017-09-20] MEDS ORDERED: Clindamycin 300 mg/2 ml Inj IVPB SCH (01:00)
[2017-09-20] MEDS ORDERED: Patient's Own Med (Piperacill/Tazo 3.375gm In Dex [Zosyn 3.375 Gm Iv] 3.375 GM) IVPB SCH (01:00)
[2017-09-20] MEDS: Clindamycin 600mg/50ml NS 600 MG/50 ML BAG IVPB SCH ×3 (01:27→16:17)
[2017-09-20] MEDS: Piperacillin/Tazobact 3.375 GM in Sodium Chloride 0.9% 100 ML IVPB SCH ×3 (02:20→17:20)
--- NOTE | 2017-09-20 15:17 | CP.PCM.PN ---
Subjective - Date & Time of Evaluation Date of Evaluation: 09/19/17 Time of Evaluation: 15:17 - Subjective Subjective: I D NOTE SEE NOTE FROM 09/19/17 NO CHANGE IN RX Objective - Vital Signs/Intake and Output Vital Signs (last 24 hours): Temp Pulse Resp BP Pulse Ox 97.5 F L 50 L 20 106/61 99 09/20/17 07:52 09/20/17 07:52 09/20/17 07:52 09/20/17 07:52 09/20/17 07:52 - Medications Medications: Current Medications Acetaminophen (Tylenol 325mg Tab) 650 mg PO Q4 PRN PRN Reason: Fever >100.4 F Acetaminophen (Tylenol 325mg Tab) 325 mg PO Q4 PRN PRN Reason: Pain, Mild (1-3) Clindamycin Phosphate (Cleocin In Normal Saline) 600 mg in 50 mls @ 50 mls/hr IVPB Q8 [facility] Last Admin: 09/20/17 08:54 Dose: 50 mls/hr Piperacillin Sod/Tazobactam (Sod 3.375 gm/ Sodium Chloride) 100 mls @ 100 mls/ hr IVPB Q8 [facility] Last Admin: 09/20/17 10:02 Dose: 100 mls/hr Promethazine HCl (Phenergan Syrup) 12.5 mg PO Q6 PRN PRN Reason: Cough
--- NOTE | 2017-09-20 23:47 | CP.PCM.HP ---
History of Present Illness - History of Present Illness History of Present Illness: Cc: Pneumonia A 26 year old male with no pmhx who is admitted to TCU for continuation of abx treatment for pneumonia and positive blood cultures. The patient initially presented to [facility] ED with sob, was noted to have multilobar pneumonia and was admitted to for antibiotic treatment. The patient responded well to abx but was however noted to have positive blood cultures. Antibiotics were adjusted and pt was transferred to TCU for completion of antibiotic treatment as was recommended by ID. The patient denies sob, chest pain, fever, chills, nausea, vomiting or diarrhea. Present on Admission - Present on Admission Any Indicators Present on Admission: No Review of Systems - Review of Systems All systems: reviewed and no additional remarkable complaints except (as stated) - Constitutional Constitutional: As Per HPI - Cardiovascular Cardiovascular: As Per HPI - Respiratory Respiratory: As Per HPI - Gastrointestinal Gastrointestinal: As Per HPI Past Patient History - Infectious Disease Hx of Infectious Diseases: None - Past Medical History & Family History Past Medical History?: Yes - Past Social History Smoking Status: Never Smoked - PULMONARY Hx Pneumonia: Yes - MUSCULOSKELETAL/RHEUMATOLOGICAL Hx Falls: No - PSYCHIATRIC Hx Substance Use: No - SURGICAL HISTORY Hx Surgeries: No - ANESTHESIA Hx Anesthesia: No Hx Anesthesia Reactions: No Hx Malignant Hyperthermia: No Meds Home Medications: Home Medication List Medication Instructions Recorded Confirmed Type Amoxicillin/Clavulanate [Augmentin 1 tab PO BID #14 tab 09/25/17 Rx 875 MG-125 MG] Allergies/Adverse Reactions: Allergies Allergy/AdvReac Type Severity Reaction Status Date / Time No Known Allergies Allergy Verified 09/19/17 20:48 Physical Exam - Constitutional Appears: Well, No Acute Distress - Head Exam Head Exam: ATRAUMATIC, NORMOCEPHALIC - Eye Exam Eye Exam: EOMI, Normal appearance, PERRL Pupil Exam: NORMAL ACCOMODATION - ENT Exam ENT Exam: Mucous Membranes Moist - Neck Exam Neck exam: Positive for: Full Rom, Normal Inspection - Respiratory Exam Respiratory Exam: Clear to Auscultation Bilateral, NORMAL BREATHING PATTERN - Cardiovascular Exam Cardiovascular Exam: REGULAR RHYTHM, +S1, +S2 - GI/Abdominal Exam GI & Abdominal Exam: Normal Bowel Sounds, Soft - Rectal Exam Rectal Exam: Deferred - Extremities Exam Extremities exam: Positive for: full ROM, normal inspection - Back Exam Back exam: NORMAL INSPECTION - Neurological Exam Neurological exam: Alert, Oriented x3 - Psychiatric Exam Psychiatric exam: Normal Affect, Normal Mood - Skin Skin Exam: Dry, Normal Color, Warm Results - Vital Signs Recent Vital Signs: Last Vital Signs Temp 98.4 F 09/20/17 20:52 Pulse 61 09/20/17 20:52 Resp 20 09/20/17 20:52 BP 112/69 09/20/17 20:52 Pulse Ox 96 09/20/17 20:52 - Labs Result Diagrams: 09/23/17 05:55 09/23/17 05:55 Assessment & Plan (1) Pneumonia Status: Acute (2) Positive blood culture Status: Acute - Assessment and Plan (Free Text) Assessment: 26 year old male with pneumonia Plan: On Clindamycin and Zosyn ID consult Oob to ambulate
[2017-09-21] MEDS: Clindamycin 600mg/50ml NS 600 MG/50 ML BAG IVPB SCH ×3 (00:36→17:16)
[2017-09-21] MEDS: Piperacillin/Tazobact 3.375 GM in Sodium Chloride 0.9% 100 ML IVPB SCH ×3 (00:51→17:17)
--- NOTE | 2017-09-21 22:10 | CP.PCM.PN ---
Subjective - Date & Time of Evaluation Date of Evaluation: 09/21/17 Time of Evaluation: 19:20 - Subjective Subjective: Feeling okay. Denies fever or chills Objective - Vital Signs/Intake and Output Vital Signs (last 24 hours): Temp Pulse Resp BP Pulse Ox 98.2 F 67 20 117/74 99 09/21/17 21:36 09/21/17 21:36 09/21/17 21:36 09/21/17 21:36 09/21/17 21:36 - Medications Medications: Current Medications Acetaminophen (Tylenol 325mg Tab) 650 mg PO Q4 PRN PRN Reason: Fever >100.4 F Acetaminophen (Tylenol 325mg Tab) 325 mg PO Q4 PRN PRN Reason: Pain, Mild (1-3) Clindamycin Phosphate (Cleocin In Normal Saline) 600 mg in 50 mls @ 50 mls/hr IVPB Q8 [facility] Last Admin: 09/21/17 17:16 Dose: 50 mls/hr Piperacillin Sod/Tazobactam (Sod 3.375 gm/ Sodium Chloride) 100 mls @ 100 mls/ hr IVPB Q8 [facility] Last Admin: 09/21/17 17:17 Dose: 100 mls/hr Promethazine HCl (Phenergan Syrup) 12.5 mg PO Q6 PRN PRN Reason: Cough - Constitutional Appears: Well, No Acute Distress - Head Exam Head Exam: ATRAUMATIC - Respiratory Exam Respiratory Exam: Clear to Ausculation Bilateral, NORMAL BREATHING PATTERN - Cardiovascular Exam Cardiovascular Exam: REGULAR RHYTHM, +S1, +S2 - GI/Abdominal Exam GI & Abdominal Exam: Soft, Normal Bowel Sounds - Neurological Exam Neurological Exam: Alert, Oriented x3 - Psychiatric Exam Psychiatric exam: Normal Affect, Normal Mood - Skin Skin Exam: Normal Color, Warm Assessment and Plan (1) Pneumonia Status: Acute (2) Positive blood culture Status: Acute - Assessment and Plan (Free Text) Assessment: 26 year old with pneumonia Plan: On clinda/zosyn continue rest of treatment ID on board
[2017-09-22] MEDS: Clindamycin 600mg/50ml NS 600 MG/50 ML BAG IVPB SCH ×3 (00:55→17:29)
[2017-09-22] MEDS: Piperacillin/Tazobact 3.375 GM in Sodium Chloride 0.9% 100 ML IVPB SCH ×3 (01:00→17:29)
--- NOTE | 2017-09-22 15:07 | CP.PCM.PN ---
Subjective - Date & Time of Evaluation Date of Evaluation: 09/22/17 Time of Evaluation: 15:07 - Subjective Subjective: I D NOTE LABS ORDERED DOING WELL Objective - Vital Signs/Intake and Output Vital Signs (last 24 hours): Temp Pulse Resp BP Pulse Ox 97.7 F 64 20 105/55 L 97 09/22/17 09:28 09/22/17 09:28 09/22/17 09:28 09/22/17 09:28 09/22/17 09:28 - Medications Medications: Current Medications Acetaminophen (Tylenol 325mg Tab) 650 mg PO Q4 PRN PRN Reason: Fever >100.4 F Acetaminophen (Tylenol 325mg Tab) 325 mg PO Q4 PRN PRN Reason: Pain, Mild (1-3) Clindamycin Phosphate (Cleocin In Normal Saline) 600 mg in 50 mls @ 50 mls/hr IVPB Q8 [facility] Last Admin: 09/22/17 08:46 Dose: 50 mls/hr Piperacillin Sod/Tazobactam (Sod 3.375 gm/ Sodium Chloride) 100 mls @ 100 mls/ hr IVPB Q8 [facility] Last Admin: 09/22/17 08:47 Dose: 100 mls/hr Promethazine HCl (Phenergan Syrup) 12.5 mg PO Q6 PRN PRN Reason: Cough
--- NOTE | 2017-09-22 23:23 | CP.PCM.PN ---
Subjective - Date & Time of Evaluation Date of Evaluation: 09/22/17 Time of Evaluation: 17:10 - Subjective Subjective: Feels okay, denies fever or chills Objective - Vital Signs/Intake and Output Vital Signs (last 24 hours): Temp Pulse Resp BP Pulse Ox 97.9 F 66 20 107/57 L 96 09/22/17 20:10 09/22/17 20:10 09/22/17 20:10 09/22/17 20:10 09/22/17 20:10 - Medications Medications: Current Medications Acetaminophen (Tylenol 325mg Tab) 650 mg PO Q4 PRN PRN Reason: Fever >100.4 F Acetaminophen (Tylenol 325mg Tab) 325 mg PO Q4 PRN PRN Reason: Pain, Mild (1-3) Clindamycin Phosphate (Cleocin In Normal Saline) 600 mg in 50 mls @ 50 mls/hr IVPB Q8 [facility] Last Admin: 09/22/17 17:29 Dose: 50 mls/hr Piperacillin Sod/Tazobactam (Sod 3.375 gm/ Sodium Chloride) 100 mls @ 100 mls/ hr IVPB Q8 [facility] Last Admin: 09/22/17 17:29 Dose: 100 mls/hr Promethazine HCl (Phenergan Syrup) 12.5 mg PO Q6 PRN PRN Reason: Cough - Constitutional Appears: Well, No Acute Distress - Head Exam Head Exam: ATRAUMATIC - Respiratory Exam Respiratory Exam: Clear to Ausculation Bilateral, NORMAL BREATHING PATTERN - Cardiovascular Exam Cardiovascular Exam: REGULAR RHYTHM, +S1, +S2 - GI/Abdominal Exam GI & Abdominal Exam: Soft, Normal Bowel Sounds - Neurological Exam Neurological Exam: Alert, Oriented x3 - Psychiatric Exam Psychiatric exam: Normal Affect, Normal Mood - Skin Skin Exam: Normal Color, Warm Assessment and Plan (1) Pneumonia Status: Acute (2) Positive blood culture Status: Acute - Assessment and Plan (Free Text) Assessment: 26 year old with pneumonia Plan: continue antibiotics ID on board Oob to ambulate
[2017-09-23] MEDS: Piperacillin/Tazobact 3.375 GM in Sodium Chloride 0.9% 100 ML IVPB SCH ×3 (00:11→16:45)
[2017-09-23] MEDS: Clindamycin 600mg/50ml NS 600 MG/50 ML BAG IVPB SCH ×3 (00:12→18:02)
[2017-09-23 06:24] LABS: BASO # 0.1 K/uL (0.0-0.2); BASO % 0.8 % (0.0-2.0); EOS # 0.2 K/uL (0.0-0.7); EOS % 2.7 % (0.0-4.0); HEMOGLOBIN 14.2 g/dL (12.0-18.0); LYMPH # 2.7 K/uL (1.0-4.3); MEAN CELL VOLUME 91.2 fl (80.0-94.0); MEAN CORPUSCULAR HEMOGLOBIN 31.3 pg (27.0-31.0); MEAN CORPUSCULAR HGB CONC 34.3 g/dL (33.0-37.0); MEAN PLATELET VOLUME 6.7 fl (7.2-11.7); MONO # 0.4 K/uL (0.0-0.8); MONO % 7.4 % (0.0-10.0); NEUT # 2.6 K/uL (1.8-7.0); NEUT % 44.1 % (50.0-75.0); NRBC % 0.2 % (0.0-0.0); RBC 4.53 Mil/uL (4.40-5.90); RED CELL DISTRIBUTION WIDTH 12.4 % (11.5-14.5); WHITE BLOOD COUNT 5.9 K/uL (4.8-10.8)
[2017-09-23 06:36] LABS: ALB/GLOB RATIO 1.1 (1.0-2.1); ALBUMIN 3.7 g/dL (3.5-5.0); ALT/SGPT 38 U/L (21-72); AST/SGOT 25 U/L (17-59); BLOOD UREA NITROGEN 23 mg/dl (9-20); CALCIUM 9.8 mg/dL (8.4-10.2); GFR AFRICAN-AMERICAN > 60; GFR NON-AFRICAN AMERICAN > 60
--- NOTE | 2017-09-23 22:08 | CP.PCM.PN ---
Subjective - Date & Time of Evaluation Date of Evaluation: 09/23/17 Time of Evaluation: 17:40 - Subjective Subjective: Feels well. No cp or sob. denies fever or chills Objective - Vital Signs/Intake and Output Vital Signs (last 24 hours): Temp Pulse Resp BP Pulse Ox 98.2 F 61 20 106/60 98 09/23/17 20:19 09/23/17 20:19 09/23/17 20:19 09/23/17 20:19 09/23/17 20:19 - Medications Medications: Current Medications Acetaminophen (Tylenol 325mg Tab) 650 mg PO Q4 PRN PRN Reason: Fever >100.4 F Acetaminophen (Tylenol 325mg Tab) 325 mg PO Q4 PRN PRN Reason: Pain, Mild (1-3) Clindamycin Phosphate (Cleocin In Normal Saline) 600 mg in 50 mls @ 50 mls/hr IVPB Q8 [facility] Last Admin: 09/23/17 18:02 Dose: 50 mls/hr Piperacillin Sod/Tazobactam (Sod 3.375 gm/ Sodium Chloride) 100 mls @ 100 mls/ hr IVPB Q8 [facility] Last Admin: 09/23/17 16:45 Dose: 100 mls/hr Promethazine HCl (Phenergan Syrup) 12.5 mg PO Q6 PRN PRN Reason: Cough - Labs Labs: 09/23/17 05:55 09/23/17 05:55 - Constitutional Appears: Well, No Acute Distress - Head Exam Head Exam: ATRAUMATIC - Respiratory Exam Respiratory Exam: Clear to Ausculation Bilateral, NORMAL BREATHING PATTERN - Cardiovascular Exam Cardiovascular Exam: REGULAR RHYTHM, +S1, +S2 - GI/Abdominal Exam GI & Abdominal Exam: Soft, Normal Bowel Sounds - Neurological Exam Neurological Exam: Alert, Oriented x3 - Psychiatric Exam Psychiatric exam: Normal Affect, Normal Mood - Skin Skin Exam: Normal Color, Warm Assessment and Plan (1) Pneumonia Status: Acute (2) Positive blood culture Status: Acute - Assessment and Plan (Free Text) Assessment: 26 year old with pneumonia Plan: On clinda/zosyn continue rest of treatment Labs noted ID on board
[2017-09-24] MEDS: Clindamycin 600mg/50ml NS 600 MG/50 ML BAG IVPB SCH ×2 (01:05→10:21)
[2017-09-24] MEDS: Piperacillin/Tazobact 3.375 GM in Sodium Chloride 0.9% 100 ML IVPB SCH ×3 (01:06→16:28)
--- NOTE | 2017-09-24 15:31 | RAD ---
HISTORY: reevaluate for pneumonia COMPARISON: Chest radiographs 09/17/2017 TECHNIQUE: Chest PA and lateral FINDINGS: LUNGS: Limited atelectasis or infiltrate is felt to be securing right middle lobe base with overall insert volume remaining limited. PLEURA: No significant pleural effusion identified. No pneumothorax apparent. CARDIOVASCULAR: Normal. OSSEOUS STRUCTURES: No significant abnormalities. VISUALIZED UPPER ABDOMEN: Normal. OTHER FINDINGS: None. IMPRESSION: Apparent resolution of prior right pleural effusion with limited airspace disease present at the right middle lobe base.
--- NOTE | 2017-09-24 22:47 | CP.PCM.PN ---
Subjective - Date & Time of Evaluation Date of Evaluation: 09/24/17 Time of Evaluation: 19:00 - Subjective Subjective: Feels well. Offers no complains. No fever or chills Objective - Vital Signs/Intake and Output Vital Signs (last 24 hours): Temp Pulse Resp BP Pulse Ox 98.2 F 55 L 20 111/61 96 09/24/17 21:52 09/24/17 21:52 09/24/17 21:52 09/24/17 21:52 09/24/17 21:52 - Medications Medications: Current Medications Acetaminophen (Tylenol 325mg Tab) 650 mg PO Q4 PRN PRN Reason: Fever >100.4 F Acetaminophen (Tylenol 325mg Tab) 325 mg PO Q4 PRN PRN Reason: Pain, Mild (1-3) Piperacillin Sod/Tazobactam (Sod 3.375 gm/ Sodium Chloride) 100 mls @ 100 mls/ hr IVPB Q8 [facility] Last Admin: 09/24/17 16:28 Dose: 100 mls/hr Clindamycin Phosphate 600 mg/ (Dextrose) 54 mls @ 54 mls/hr IVPB Q8 [facility] Last Admin: 09/24/17 17:44 Dose: 54 mls/hr Promethazine HCl (Phenergan Syrup) 12.5 mg PO Q6 PRN PRN Reason: Cough - Labs Labs: 09/23/17 05:55 09/23/17 05:55 - Constitutional Appears: Well, No Acute Distress - Head Exam Head Exam: ATRAUMATIC - Respiratory Exam Respiratory Exam: Clear to Ausculation Bilateral, NORMAL BREATHING PATTERN - Cardiovascular Exam Cardiovascular Exam: REGULAR RHYTHM, +S1, +S2 - Neurological Exam Neurological Exam: Alert, Oriented x3 - Psychiatric Exam Psychiatric exam: Normal Affect, Normal Mood - Skin Skin Exam: Normal Color, Warm Assessment and Plan (1) Pneumonia Status: Acute (2) Positive blood culture Status: Acute - Assessment and Plan (Free Text) Assessment: 26 year old with pneumonia Plan: On clinda/zosyn continue rest of treatment cxr - resolution of right pleural effusion with limited airspace disease L D/c planning
[2017-09-25] MEDS: Piperacillin/Tazobact 3.375 GM in Sodium Chloride 0.9% 100 ML IVPB SCH (00:58)
[2017-09-25 08:17] VITALS: BP 97/59; PULSE 56; TEMP 97.3; O2SAT 99
--- NOTE | 2017-09-25 12:53 | CP.PCM.DIS ---
Provider - Provider Date of Admission: 09/19/17 18:45 Attending physician: Charlette Ying MD Time Spent in preparation of Discharge (in minutes): 30 Diagnosis - Discharge Diagnosis (1) Pneumonia Status: Resolved (2) Positive blood culture Status: Resolved Hospital Course - Lab Results Lab Results: Micro Results 09/23/17 05:55 Blood Blood Culture - Preliminary NO GROWTH AFTER 48 HOURS Most Recent Lab Values WBC 5.9 K/uL (4.8-10.8) 09/23/17 05:55 RBC 4.53 Mil/uL (4.40-5.90) 09/23/17 05:55 Hgb 14.2 g/dL (12.0-18.0) 09/23/17 05:55 Hct 41.3 % (35.0-51.0) 09/23/17 05:55 MCV 91.2 fl (80.0-94.0) 09/23/17 05:55 MCH 31.3 pg (27.0-31.0) H 09/23/17 05:55 MCHC 34.3 g/dL (33.0-37.0) 09/23/17 05:55 RDW 12.4 % (11.5-14.5) 09/23/17 05:55 Plt Count 395 K/uL (130-400) D 09/23/17 05:55 MPV 6.7 fl (7.2-11.7) L 09/23/17 05:55 Neut % (Auto) 44.1 % (50.0-75.0) L 09/23/17 05:55 Lymph % (Auto) 45.0 % (20.0-40.0) H 09/23/17 05:55 Stark % (Auto) 7.4 % (0.0-10.0) 09/23/17 05:55 Eos % (Auto) 2.7 % (0.0-4.0) 09/23/17 05:55 Baso % (Auto) 0.8 % (0.0-2.0) 09/23/17 05:55 Neut # (Auto) 2.6 K/uL (1.8-7.0) 09/23/17 05:55 Lymph # (Auto) 2.7 K/uL (1.0-4.3) 09/23/17 05:55 Stark # (Auto) 0.4 K/uL (0.0-0.8) 09/23/17 05:55 Eos # (Auto) 0.2 K/uL (0.0-0.7) 09/23/17 05:55 Baso # (Auto) 0.1 K/uL (0.0-0.2) 09/23/17 05:55 Sodium 142 mmol/l (132-148) 09/23/17 05:55 Potassium 4.3 MMOL/L (3.6-5.0) 09/23/17 05:55 Chloride 99 mmol/L (98-107) 09/23/17 05:55 Carbon Dioxide 29 mmol/L (22-30) 09/23/17 05:55 Anion Gap 18 (10-20) 09/23/17 05:55 BUN 23 mg/dl (9-20) H 09/23/17 05:55 Creatinine 0.9 mg/dl (0.8-1.5) 09/23/17 05:55 Est GFR ( Amer) > 60 09/23/17 05:55 Est GFR (Non-Af Amer) > 60 09/23/17 05:55 Random Glucose 87 mg/dL (75-110) 09/23/17 05:55 Calcium 9.8 mg/dL (8.4-10.2) 09/23/17 05:55 Total Bilirubin 0.3 mg/dl (0.2-1.3) 09/23/17 05:55 AST 25 U/L (17-59) 09/23/17 05:55 ALT 38 U/L (21-72) 09/23/17 05:55 Alkaline Phosphatase 60 U/L (38-126) 09/23/17 05:55 Total Protein 7.0 G/DL (6.3-8.2) 09/23/17 05:55 Albumin 3.7 g/dL (3.5-5.0) 09/23/17 05:55 Globulin 3.4 gm/dL (2.2-3.9) 09/23/17 05:55 Albumin/Globulin Ratio 1.1 (1.0-2.1) 09/23/17 05:55 - Hospital Course Hospital Course: 26 year old male with no pmhx who was admitted to TCU for completion of IV antibiotics treatment for RML/RLL pneumonia and for positive blood cultures. Repeat blood cultures were negative. The patient tolerated IV antibiotics and responded well to treatment. The patient was discharged home on oral antibiotics with outpatient follow up instructions. Discharge Exam - Head Exam Head Exam: ATRAUMATIC - Respiratory Exam Respiratory Exam: Clear to PA & Lateral, NORMAL BREATHING PATTERN - Cardiovascular Exam Cardiovascular Exam: REGULAR RHYTHM, +S1, +S2 - GI/Abdominal Exam GI & Abdominal Exam: Normal Bowel Sounds, Soft - Neurological Exam Neurological exam: Alert, Oriented x3 - Psychiatric Exam Psychiatric exam: Normal Affect, Normal Mood - Skin Skin Exam: Normal Color, Warm Discharge Plan - Discharge Medications Prescriptions: Amoxicillin/Clavulanate [Augmentin 875 MG-125 MG] 1 tab PO BID #[id number] tab - Follow Up Plan Condition: GOOD Disposition: HOME/ ROUTINE Instructions: Pneumonia, Adult (DC) Referrals: Charlette Ying MD [Staff Provider] -
== END 2017-09-25 13:30 | disposition home or self-care (01) | DRG 194 ==
LOC: H.TCU 18:45
PROVIDERS: ADMIT Internal Medicine; ATTEND Internal Medicine
DX: J18.1 Lobar pneumonia, unspecified organism (principal); R78.81 Bacteremia